=== PATIENT | female | born 1985 | race American Indian/Alaskan Native ===

== ENCOUNTER 2017-06-20 18:44 | Emergency (ER) | payer SELFPAY ==
[2017-06-20 19:39] VITALS: BP 143/79
[2017-06-20] MEDS ORDERED: TORADOL IM ONE (19:49)
[2017-06-20 21:02] LABS: Basophils % (Auto) 0.5 % (0.0-1.8); Eosinophils # (Auto) 0.1 K/mm3 (0.0-0.4); Eosinophils % (Auto) 1.2 % (0.0-4.3); Hematocrit 37.6 % (30.3-42.9); Hemoglobin 12.4 gm/dl (10.1-14.3); Lymphocytes # (Auto) 3.1 K/mm3 (1.2-5.4); Mean Corpuscular HGB Conc 33 % (30-34); Mean Corpuscular Hemoglobin 29 pg (28-32); Mean Corpuscular Volume 86 fl (79-97); Monocytes # (Auto) 0.7 K/mm3 (0.0-0.8); Monocytes % (Auto) 8.7 % (0.0-7.3); Platelet Count 286 K/mm3 (140-440); Red Blood Count 4.35 M/mm3 (3.65-5.03); Red Cell Distribution Width 13.9 % (13.2-15.2)
[2017-06-20 21:22] LABS: Alanine Aminotransferase 18 units/L (7-56); Albumin 3.9 g/dL (3.9-5); BUN/Creatinine Ratio 19; Blood Urea Nitrogen 13 mg/dL (7-17); Calcium 9.4 mg/dL (8.4-10.2); Hemolysis Index 9; Lipase 26 units/L (13-60)
[2017-06-20 21:40] LABS: Bilirubin,Urine NEG (Negative); Blood,Urine NEG (Negative); Color,Urine Yellow (Yellow); Protein,Urine <15 mg/dL mg/dL (Negative); Urobilinogen,Urine < 2.0 mg/dL (<2.0)
[2017-06-20] MEDS ORDERED: TYLENOL PO ONE (23:20)
[2017-06-20] MEDS ORDERED: TYLENOL ONE (23:21)
== END 2017-06-21 01:00 | disposition left against medical advice (07) ==
LOC: ED 18:44
DX: R10.9 Unspecified abdominal pain (principal); Z53.21 Procedure and treatment not carried out due to patient leaving prior to being seen by health care provider
CPT/HCPCS: 36415; 80053; 81001; 83690; 84703; 85025; J1885

== ENCOUNTER 2021-04-02 19:49 | Emergency (ER) | payer SELFPAY ==
[2021-04-02 19:56] VITALS: BP 130/71
--- NOTE | 2021-04-02 21:58 | Emergency Department Report ---
Upper Extremity - HPI Chief Complaint: Extremity Injury, Upper Stated Complaint: LEFT HAND INFECTION Time Seen by Provider: 04/02/21 21:49 Upper Extremity: Left Middle Finger Occurred When: >5 Days Mechanism: Crush Severity: severe Symptoms: Yes Pain with Movement, Yes Swelling, No Deformity, No Limited Range of Movement, No Numbness, No Weakness, No Bruising/Ecchymosis, No Laceration or Abrasion Other History: Chief complaint I crushed my finger had an infection. HPI: This is a 36-year-old female who has a crush injury and infection of the distal part of her left third finger. She is taking antibiotics. She slammed her finger with a car door. She then placed a fake nail over top. She has poor drainage. She has swelling. She has severe pain. ED Review of Systems ROS: Stated complaint: LEFT HAND INFECTION Other details as noted in HPI Constitutional: denies: fever, malaise Respiratory: denies: cough, shortness of breath Neurological: denies: numbness, paresthesias ED Past Medical Hx - Past Medical History Previous Medical History?: No - Surgical History Past Surgical History?: Yes Additional Surgical History: chest tube, pilonidal cyst removal - Social History Smoking Status: Current Every Day Smoker Substance Use Type: Alcohol - Medications Home Medications: Home Medications Medication Instructions Recorded Confirmed Last Taken Type Famotidine [Pepcid] 20 mg PO BID PRN #20 tablet 04/22/16 Unknown Rx hydrOXYzine HCL [Hydroxyzine HCl] 25 mg PO BID PRN #20 tablet 04/22/16 Unknown Rx HYDROcodone/APAP 5-325 [[place] 1 each PO Q6HR PRN #20 tablet 03/04/18 Unknown Rx 5/325] Ibuprofen [Motrin] 800 mg PO Q8HR PRN #30 tablet 03/04/18 Unknown Rx Nitrofurantoin Monohyd/M-Cryst 100 mg PO BID #10 capsule 03/04/18 Unknown Rx [Macrobid 100 mg Capsule] Ondansetron [Zofran Odt] 4 mg PO Q8HR PRN #20 tab.rapdis 03/04/18 Unknown Rx Upper Extremity Exam - Exam General: Vital signs noted. No distress. Alert and acting appropriately. Mildly edematous distal phalanx of left middle finger, unable to express pus. Head and Torso: No HEENT Abnormality Elbow: Yes Normal Range of Motion in Elbow, No Elbow Tenderness, No Elbow Deformity Forearm: No Forearm Tenderness, No Forearm Deformity Wrist: No Wrist Tenderness Hand: Yes Hand Tenderness CMS Exam: Yes Normal Distal Pulses, Yes Normal Capillary Refill, Yes Normal Distal Sensation, No Broken Skin ED Course Vital Signs 04/02/21 19:54 Temperature 98.0 F Pulse Rate 82 Respiratory 18 Rate Blood Pressure 130/71 O2 Sat by Pulse 99 Oximetry ED Medical Decision Making - Medical Decision Making Crush injury middle finger left hand: no indication of felon, referred to hand surgeon Critical care attestation.: If time is entered above; I have spent that time in minutes in the direct care of this critically ill patient, excluding procedure time. ED Disposition Clinical Impression: Crushing injury of finger of left hand Disposition: 01 HOME / SELF CARE / HOMELESS Is pt being admited?: No Does the pt Need Aspirin: No Condition: Stable Instructions: Crush Injury of the Hand Additional Instructions: [facility] [phone]
== END 2021-04-02 22:04 | disposition home or self-care (01) ==
LOC: ED 19:49
DX: S69.92XA Unspecified injury of left wrist, hand and finger(s), initial encounter (principal); W23.0XXA Caught, crushed, jammed, or pinched between moving objects, initial encounter; Y93.89 Activity, other specified; Y92.89 Other specified places as the place of occurrence of the external cause; Y99.8 Other external cause status
CPT/HCPCS: 99282

== ENCOUNTER 2021-12-30 08:05 | Emergency (ER) | payer SELFPAY ==
[2021-12-30] MEDS ORDERED: TETRACAINE 0.5% OPHTH SOLN 4ML OU ONE (10:11)
[2021-12-30] MEDS ORDERED: FLUORESCEIN 1 MG STRIP OP ONE (10:11)
--- NOTE | 2021-12-30 10:18 | Emergency Department Report ---
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 ED Review of Systems ROS: Stated complaint: DOUBLE PINK EYE,SORE THROAT Other details as noted in HPI Comment: All other systems reviewed and negative Constitutional: denies: chills, fever Eyes: as per HPI. denies: vision change ENT: throat pain, congestion. denies: ear pain, epistaxis Respiratory: denies: cough, shortness of breath Cardiovascular: denies: chest pain, palpitations, edema Gastrointestinal: denies: abdominal pain, nausea, vomiting, diarrhea Genitourinary: denies: urgency, dysuria, frequency, hematuria Musculoskeletal: denies: back pain Skin: denies: rash, lesions Neurological: denies: headache, weakness, numbness, paresthesias, confusion Psychiatric: denies: anxiety, depression Hematological/Lymphatic: denies: easy bleeding, easy bruising ED Past Medical Hx - Surgical History Additional Surgical History: chest tube, pilonidal cyst removal - Family History Family history: no significant - Social History Smoking Status: Current Every Day Smoker Substance Use Type: Alcohol - Medications Home Medications: Home Medications Medication Instructions Recorded Confirmed Last Taken Type Famotidine [Pepcid] 20 mg PO BID PRN #20 tablet 04/22/16 Unknown Rx Ciprofloxacin HCl 2 drop OU Q4HR 7 Days #10 ml 12/30/21 Unknown Rx Center Eye Exam - Exam General: Vital signs noted. No distress. Alert and acting appropriately. Eye Exam: Right Purulent Discharge, Both Injection, Both EOMI, Both Mucous Discharge, Neither Chemosis, Neither Abnormal Pupil, Neither Eye Foreign Body, Neither Lid Foreign Body, Neither Fluorescein Uptake HEENT: Yes Nasal Congestion, No Pharyngeal Erythema Remainder of HEENT: Normal Lungs: Yes Clear Lung Sounds, Yes Good Air Exchange, No Wheezes, No Cough ED Course Vital Signs 12/30/21 08:07 Temperature 98.5 F Pulse Rate 92 H Respiratory 18 Rate Blood Pressure 135/78 [Right] O2 Sat by Pulse 100 Oximetry - Reevaluation(s) Reevaluation #1: 12/30/21 10:18 Tetracaine instilled bilaterally followed by fluorescein. No uptake noted. No evidence of foreign body. Eyelid everted with no evidence of foreign body in the tarsal plate. ED Medical Decision Making - Medical Decision Making Conjunctivitis no evidence of corneal abrasion. We will give her ophthalmology to follow-up with if not improving. - Differential Diagnosis Conjunctivitis. Foreign body eye. Corneal abrasion. Critical care attestation.: If time is entered above; I have spent that time in minutes in the direct care of this critically ill patient, excluding procedure time. ED Disposition Clinical Impression: Conjunctivitis, acute, bilateral, Rhinitis Disposition: 01 HOME / SELF CARE / HOMELESS Is pt being admited?: No Condition: Stable Instructions: Bacterial Conjunctivitis, Adult, Nonallergic Rhinitis Additional Instructions: Warm compresses to the sinuses. Nasal saline and or nasal steroids (Flonase). Change eyedrops as above. Follow-up with ophthalmology if not improving in 48 to 72 hours. Prescriptions: Ciprofloxacin HCl 2 drop OU Q4HR 7 Days #10 ml Referrals: TROY GRADY MD [Staff Physician] - 3-5 Days Forms: Work/School Release Form(ED) Time of Disposition: 10:27
[2021-12-30 10:46] VITALS: BP 140/84
== END 2021-12-30 10:46 | disposition home or self-care (01) ==
LOC: ED 08:05
DX: H10.33 Unspecified acute conjunctivitis, bilateral (principal); J31.0 Chronic rhinitis; F17.200 Nicotine dependence, unspecified, uncomplicated; Z72.89 Other problems related to lifestyle; Z79.899 Other long term (current) drug therapy
CPT/HCPCS: 99283